=== PATIENT | female | born 1955 | race Caucasian/White ===

== ENCOUNTER 2019-03-28 07:28 | Day surgery (SDC) | payer OTHER ==
[2019-03-20 13:31] VITALS: BMI 24.1
[2019-03-28] MEDS: TROPICAMIDE 1% OPHTH SOLN 15 ML BOTTLE ONE ×3 (09:00→09:10)
[2019-03-28] MEDS: CYCLOPENTOLATE 2% OPHTH SOLN 2 ML BOTTLE ONE ×3 (09:00→09:10)
[2019-03-28] MEDS: CIPROFLOXACIN 0.3% EYE DROPS 5 ML BOTTLE ONE ×3 (09:00→09:10)
[2019-03-28] MEDS: PHENYLEPHRINE 2.5% OPHTH SOLN 15 ML BOTTLE ONE ×3 (09:00→09:10)
[2019-03-28] MEDS ORDERED: CARBACHOL 0.01% INTRA-OCULAR 1.5 ML VIAL ONE (10:08)
[2019-03-28] MEDS ORDERED: BSS (NA/CA/MG/K) BALANCED SALT SOLUTION OPHTH SOLN 15 ML BOTTLE ONE (10:08)
[2019-03-28] MEDS ORDERED: NEO/POLYMYX B SULF/DEXAMETH OPHTHALMIC 5ML BOTTLE ONE (10:08)
[2019-03-28] MEDS ORDERED: MIDAZOLAM HCL 2 MG/2 ML SINGLE DOSE VIAL ONE (10:15)
[2019-03-28 10:53] VITALS: TEMP 98.6
[2019-03-28 11:39] VITALS: BP 123/85; PULSE 87
--- NOTE | 2019-03-28 12:57 | OP ---
DATE OF Surgery: 03/28/2019 OPERATIVE PROCEDURE: Lens Phacoemulsification with Posterior Chamber Intraocular Lens Placement, Right Eye PREOPERATIVE DIAGNOSIS: Visually Significant Cataract of Right Eye POSTOPERATIVE DIAGNOSIS: Visually Significant Cataract of Right Eye SURGEON: Dominik Loza M.D. ANESTHESIA: MAC PROCEDURE: The patient was brought to the operating room and placed under monitored anesthesia care by Anesthesia. A drop of Tetracaine was then placed over the right eye. The patient was then prepped and draped in the usual sterile manner. A speculum was then placed over the right eye. The eye was then well irrigated with copious amounts of BSS (balanced salt solution). The operating microscope was then moved into position. A paracentesis was performed using a 15 degree blade. At this point 0.5 mL of 1% preservative free-lidocaine was injected into the anterior chamber. Amvisc plus was then injected into the anterior chamber. A clear corneal incision was then formed using a 2.2 mm keratome. A capsulorrhexis was then performed in a continuous circular fashion beginning with a cystotome completed with an Utratas forceps. Hydrodissection was then performed using BSS on a cannula. The phaco probe was then introduced through the corneal wound and the cataract was removed using the phaco chop technique. Approximately 3 seconds of absolute phaco time was used. The remaining cortex was then removed using irrigation and aspiration with an I/A probe. The capsule was then filled with regular Amvisc and the capsule was noted to be intact. A previously selected foldable posterior chamber intraocular lens was then injected into the capsule through the corneal wound using a lens injector. It was then dialed into position using a [place]inskey hook. The Amvisc was then removed using irrigation and aspiration. Miostat was then injected through the paracentesis to constrict the pupil. The paracentesis and corneal wound were then hydrated and noted to be water tight. A drop of Maxitrol was then placed over the eye. The speculum was removed and clear shield was taped over the eye. The patient tolerated the procedure well and there were no surgical complications. The patient was asked to follow up in my office the next day. DOMINIK LOZA M.D. [id number]
== END 2019-03-28 11:40 | disposition home or self-care (01) ==
LOC: FASU 07:28
PROVIDERS: ATTEND Ophthalmology
PROC: 08RJ3JZ Replacement of Right Lens with Synthetic Substitute, Percutaneous Approach (ICD-10-PCS; principal; 2019-03-28 10:27)
DX: H26.8 Other specified cataract (principal)

== ENCOUNTER 2019-04-18 08:13 | Day surgery (SDC) | payer OTHER ==
[2019-04-16 13:08] VITALS: BMI 23.8
[2019-04-18] MEDS: CYCLOPENTOLATE 2% OPHTH SOLN 2 ML BOTTLE ONE ×3 (09:15→09:25)
[2019-04-18] MEDS: TROPICAMIDE 1% OPHTH SOLN 15 ML BOTTLE ONE ×3 (09:15→09:25)
[2019-04-18] MEDS: CIPROFLOXACIN 0.3% EYE DROPS 5 ML BOTTLE ONE ×3 (09:15→09:25)
[2019-04-18] MEDS: PHENYLEPHRINE 2.5% OPHTH SOLN 15 ML BOTTLE ONE ×3 (09:15→09:25)
[2019-04-18] MEDS ORDERED: CARBACHOL 0.01% INTRA-OCULAR 1.5 ML VIAL ONE (10:21)
[2019-04-18] MEDS ORDERED: BSS (NA/CA/MG/K) BALANCED SALT SOLUTION OPHTH SOLN 15 ML BOTTLE ONE (10:21)
[2019-04-18] MEDS ORDERED: MIDAZOLAM HCL 2 MG/2 ML SINGLE DOSE VIAL ONE (10:29)
[2019-04-18 11:02] VITALS: TEMP 98.5
[2019-04-18 11:25] VITALS: BP 121/77; PULSE 78
--- NOTE | 2019-04-19 07:30 | OP ---
DATE OF OPERATION: 04/18/2019 OPERATIVE PROCEDURE: Lens phacoemulsification with posterior chamber intraocular lens placement left eye. PREOPERATIVE DIAGNOSIS: Visually significant cataract of left eye. POSTOPERATIVE DIAGNOSIS: Visually significant cataract of left eye. SURGEON: Dominik Loza M.D. ANESTHESIA: MAC PROCEDURE: The patient was brought to the operating room and placed under monitored anesthesia care by Anesthesia. A drop of tetracaine was then placed over the left eye. The patient was then prepped and draped in the usual sterile manner. A speculum was then placed over the left eye. The eye was then well irrigated with copious amounts of BSS (balanced salt solution). The operating microscope was then moved into position. A paracentesis was performed using a 15-degree blade. At this point 0.5 mL of 1% preservative-free lidocaine was injected into the anterior chamber. Amvisc Plus was then injected into the anterior chamber. A clear corneal incision was then formed using a 2.2-mm keratome. A capsulorrhexis was then performed in a continuous circular fashion beginning with a cystotome and completed with Utrata forceps. Hydrodissection was then performed using BSS on a cannula. The phaco probe was then introduced through the corneal wound, and the cataract was removed using the phaco-chop technique. Approximately 3 seconds of absolute phaco time was used. The remaining cortex was then removed using irrigation and aspiration with an I/A probe. The capsule was then filled with regular Amvisc, and the capsule was noted to be intact. A previously selected foldable posterior chamber intraocular lens was then injected into the capsule through the corneal wound using a lens injector. It was then dialed into position using a Sinskey hook. The Amvisc was then removed using irrigation and aspiration. Miostat was then injected through the paracentesis to constrict the pupil. The paracentesis and corneal wound were then hydrated and noted to be watertight. A drop of Maxitrol was then placed over the eye. The speculum was removed and clear shield was taped over the eye. The patient tolerated the procedure well, and there were no surgical complications. The patient was asked to follow up in my office the next day. DOMINIK LOZA M.D. [id number]
== END 2019-04-18 11:30 | disposition home or self-care (01) ==
LOC: FASU 08:13
PROVIDERS: ATTEND Ophthalmology
PROC: 08RK3JZ Replacement of Left Lens with Synthetic Substitute, Percutaneous Approach (ICD-10-PCS; principal; 2019-04-18 10:37)
DX: H26.8 Other specified cataract (principal)

== ENCOUNTER 2019-05-18 20:52 | Emergency (ER) | payer OTHER ==
[2019-05-18 20:58] VITALS: BMI 24.5
--- NOTE | 2019-05-18 21:46 | PDOC ---
History of Present Illness - General Chief Complaint: Lightheaded Stated Complaint: DIZZINESS Time Seen by Provider: 05/18/19 21:14 - History of Present Illness Initial Comments: Ms. Hanna is a 64 y/o female with PMH significant for HTN, presenting today with vertigo, decreased appetite, and weakness that started yesterday and heart palpitations that started today. Reports that she has never had these symptoms before. Denies headache/vision changes. Denies fever/chills. Denies chest pain or shortness of breath. Denies abdominal pain. Denies dysuria/hematuria/diarrhea. Past History - Past Medical History Allergies/Adverse Reactions: Allergies Allergy/AdvReac Type Severity Reaction Status Date / Time No Known Allergies Allergy Verified 05/18/19 20:58 Home Medications: Ambulatory Orders Amlodipine Besylate [Norvasc -] 5 mg PO DAILY 03/20/19 Levothyroxine [Synthroid -] 88 mcg PO DAILY 03/20/19 Losartan Potassium 100 mg PO DAILY 03/20/19 Anemia: No Asthma: No Cancer: Yes (Thyroid) Cardiac Disorders: No CVA: No COPD: No CHF: No Dementia: No Diabetes: No GI Disorders: No Disorders: No HTN: Yes Hypercholesterolemia: No Liver Disease: No Seizures: No Thyroid Disease: Yes ([place]) - Surgical History Abdominal Surgery: No Appendectomy: No Cardiac Surgery: No Cholecystectomy: No Lung Surgery: No Neurologic Surgery: No Orthopedic Surgery: No - Psycho Social/Smoking Cessation Hx Smoking History: Never smoked Have you smoked in the past 12 months: No Hx Alcohol Use: No Drug/Substance Use Hx: No Substance Use Type: None Cardiac Specific PMH - Complaint Specific PMHX Pacemaker: No Review of Systems - Review of Systems Comments:: GENERAL/CONSTITUTIONAL: No fever or chills. Reports weakness. Reports decreased appetite. HEAD, EYES, EARS, NOSE AND THROAT: No change in vision. No change in hearing. No sore throat._ CARDIOVASCULAR: No chest pain or shortness of breath. Reports heart palpitations. RESPIRATORY: Denies cough, hemoptysis_ GASTROINTESTINAL: No nausea, vomiting, diarrhea or constipation._ GENITOURINARY: No dysuria, frequency, or change in urination._ MUSCULOSKELETAL: No joint or muscle swelling or pain. No neck or back pain._ SKIN: No rash_ NEUROLOGIC: Reports vertigo. No headache, loss of consciousness, or change in strength/sensation._ ENDOCRINE: No increased thirst. No abnormal weight change_ HEMATOLOGIC/LYMPHATIC: No anemia, easy bleeding, or history of blood clots._ ALLERGIC/IMMUNOLOGIC: No hives or skin allergy._ *Physical Exam - Vital Signs Last Vital Signs Temp Pulse Resp BP Pulse Ox 98 F 101 H 20 148/102 H 97 05/18/19 22:41 05/19/19 02:16 05/19/19 02:16 05/19/19 02:16 05/19/19 02:16 - Physical Exam GENERAL: Awake, alert, and oriented to person/place/time, in no acute distress_ HEAD: No signs of trauma, normocephalic, atraumatic _ EYES: PERRLA, EOMI, sclera anicteric, conjunctiva clear_ ENT: Hearing grossly normal, nares patent, oropharynx clear without exudates. No uvular deviation. Moist mucosa. TMs clear and intact bilaterally. NECK: Normal ROM, supple, no lymphadenopathy, JVD, or masses_ LUNGS: No distress, speaks in full sentences, clear to auscultation bilaterally _ HEART: Tachycardia, normal S1 and S2, no murmurs appreciated, peripheral pulses normal and equal bilaterally._ ABDOMEN: Soft, nontender, normoactive bowel sounds. No guarding, no rebound. No masses_ EXTREMITIES: Normal inspection, Normal range of motion, no edema. No clubbing or cyanosis_ NEUROLOGICAL: Cranial nerves II through XII grossly intact. Normal speech, normal gait, no focal sensorimotor deficits. No nystagmus on lateral gaze bilaterally. Cerebellar testing intact. SKIN: Warm, Dry, normal turgor, no rashes or lesions noted_ ED Treatment Course - LABORATORY CBC & Chemistry Diagram: 05/18/19 22:00 05/18/19 22:00 - ADDITIONAL ORDERS Additional order review: Laboratory Results 05/18/19 05/18/19 05/18/19 22:00 22:00 22:00 PT with INR 11.30 INR 0.96 PTT (Actin FS) 36.3 Sodium Potassium Chloride Carbon Dioxide Anion Gap BUN Creatinine Est GFR (CKD-EPI)AfAm Est GFR (CKD-EPI)NonAf Random Glucose Calcium Total Bilirubin AST ALT Alkaline Phosphatase Creatine Kinase 157 Creatine Kinase Index 0.9 CK-MB (CK-2) 1.5 Troponin I < 0.02 Total Protein Albumin TSH 1.14 Urine Color Yellow Urine Appearance Clear Urine pH 5.0 Ur Specific [place] 1.004 L Urine Protein Negative Urine Glucose (UA) Negative Urine Ketones Negative Urine Blood Trace Urine Nitrite Negative Urine Bilirubin Negative Urine Urobilinogen 0.2 Ur Leukocyte Esterase Negative Urine WBC (Auto) 1 Urine RBC (Auto) 0 Urine Casts (Auto) 0 U Epithel Cells (Auto) 0.7 Urine Bacteria (Auto) 15.0 05/18/19 05/18/19 22:00 22:00 PT with INR INR PTT (Actin FS) Sodium 140 Potassium 4.6 Chloride 106 Carbon Dioxide 27 Anion Gap 7 L BUN 9.2 Creatinine 0.8 Est GFR (CKD-EPI)AfAm 90.30 Est GFR (CKD-EPI)NonAf 77.91 Random Glucose 149 H Calcium 9.2 Total Bilirubin 0.3 AST 34 ALT 30 Alkaline Phosphatase 139 H Creatine Kinase Cancelled Creatine Kinase Index CK-MB (CK-2) Troponin I Cancelled Total Protein 8.4 H Albumin 4.3 TSH Urine Color Urine Appearance Urine pH Ur Specific [place] Urine Protein Urine Glucose (UA) Urine Ketones Urine Blood Urine Nitrite Urine Bilirubin Urine Urobilinogen Ur Leukocyte Esterase Urine WBC (Auto) Urine RBC (Auto) Urine Casts (Auto) U Epithel Cells (Auto) Urine Bacteria (Auto) 05/18/19 22:00 RBC 6.09 H MCV 72.7 L MCHC 31.5 L RDW 15.4 MPV 8.4 Neutrophils % 62.0 Lymphocytes % 30.5 Monocytes % 6.3 Eosinophils % 0.6 Basophils % 0.6 - RADIOLOGY Radiology Studies Ordered: Category Date Time Status HEAD CT WITHOUT CONTRAST [CT] Stat CT Scan 05/18/19 22:40 Taken CHEST X-RAY PORTABLE* [RAD] Stat Radiology 05/18/19 21:40 Taken Medical Decision Making - Medical Decision Making 64F hx of HTN here for vertigo that started yesterday and palpitations that started this afternoon. -ekg, cxr, trop -cbc, cmp, coags, tsh -ct head -ua, ucx 05/18/19 21:45 EKG shows HR 139 bpm, no ST elevation/depression, QTc 559, no axis deviation. 05/18/19 22:06 EKG shows sinus tachycardia, 118 bpm, no ST elevation/depression, QTc 440, no axis deviation. 05/18/19 22:07 EKG shows sinus tachycardia, 114 bpm, no ST elevation/depression, QTc 452, no axis deviation. 05/18/19 22:30 Labs reviewed. Laboratory Tests 05/18/19 05/18/19 05/18/19 22:00 22:00 22:00 WBC 9.3 RBC 6.09 H Hgb 13.9 Hct 44.3 MCV 72.7 L MCH 22.9 L MCHC 31.5 L RDW 15.4 Plt Count 292 MPV 8.4 Absolute Neuts (auto) 5.8 Neutrophils % 62.0 Lymphocytes % 30.5 Monocytes % 6.3 Eosinophils % 0.6 Basophils % 0.6 Nucleated RBC % 0 PT with INR INR PTT (Actin FS) Sodium 140 Potassium 4.6 Chloride 106 Carbon Dioxide 27 Anion Gap 7 L BUN 9.2 Creatinine 0.8 Est GFR (CKD-EPI)AfAm 90.30 Est GFR (CKD-EPI)NonAf 77.91 Random Glucose 149 H Calcium 9.2 Total Bilirubin 0.3 AST 34 ALT 30 Alkaline Phosphatase 139 H Creatine Kinase Cancelled Creatine Kinase Index CK-MB (CK-2) Troponin I Cancelled Total Protein 8.4 H Albumin 4.3 TSH Urine Color Urine Appearance Urine pH Ur Specific [place] Urine Protein Urine Glucose (UA) Urine Ketones Urine Blood Urine Nitrite Urine Bilirubin Urine Urobilinogen Ur Leukocyte Esterase Urine WBC (Auto) Urine RBC (Auto) Urine Casts (Auto) U Epithel Cells (Auto) Urine Bacteria (Auto) 05/18/19 05/18/19 05/18/19 22:00 22:00 22:00 WBC RBC Hgb Hct MCV MCH MCHC RDW Plt Count MPV Absolute Neuts (auto) Neutrophils % Lymphocytes % Monocytes % Eosinophils % Basophils % Nucleated RBC % PT with INR 11.30 INR 0.96 PTT (Actin FS) 36.3 Sodium Potassium Chloride Carbon Dioxide Anion Gap BUN Creatinine Est GFR (CKD-EPI)AfAm Est GFR (CKD-EPI)NonAf Random Glucose Calcium Total Bilirubin AST ALT Alkaline Phosphatase Creatine Kinase 157 Creatine Kinase Index 0.9 CK-MB (CK-2) 1.5 Troponin I < 0.02 Total Protein Albumin TSH 1.14 Urine Color Yellow Urine Appearance Clear Urine pH 5.0 Ur Specific [place] 1.004 L Urine Protein Negative Urine Glucose (UA) Negative Urine Ketones Negative Urine Blood Trace Urine Nitrite Negative Urine Bilirubin Negative Urine Urobilinogen 0.2 Ur Leukocyte Esterase Negative Urine WBC (Auto) 1 Urine RBC (Auto) 0 Urine Casts (Auto) 0 U Epithel Cells (Auto) 0.7 Urine Bacteria (Auto) 15.0 05/19/19 01:33 CT head shows no acute intra-cranial hemorrhage, mass effect, or mid line shift. Mild nonspecific periventricular predominant low density throughout the deep white matter is most likely due to mild small vessel ischemic white matter disease. Calcified arteriosclerosis of the cavernous carotids noted. 05/19/19 02:00 Patient reassessed. Reports that she is feeling much better and sometimes feels anxious around others. D/w the importance of f/u with PCP and web administrator. Patient verbalized understanding and agreement with the plan. All questions answered. Return precautions given. Plan to d/c home with PCP and cards f/u. Discharge - Discharge Information Problems reviewed: Yes Clinical Impression/Diagnosis: Dizziness Disposition: HOME - Follow up/Referral Referrals: Graciela Garcia MD [Staff Physician] - Devyn Calvillo [Primary Care Provider] - - Patient Discharge Instructions Patient Printed Discharge Instructions: DI for Anxiety -- Adult, DI for Tachycardia Additional Instructions: Please make a follow up appointment with your primary care doctor within 1 week. Please make an appointment with a web administrator to further work up your heart palpitations. If you experience any new, worsening, or concerning symptoms, including severe chest pain, shortness of breath, dizziness, loss of consciousness, or any other concerns, please return to the emergency department. Pasha kandice tamara de seguimiento con li mdico de atencin primaria dentro de 1 semana. Pasha kandice tamara con un cardilogo para mejorar las palpitaciones de li corazn. Si experimenta cualquier sntoma nuevo, que empeora o preocupa, incluido dolor torcico intenso, falta de aliento, mareos, prdida de conciencia o cualquier otra inquietud, regrese al departamento de emergencias. - Post Discharge Activity
[2019-05-18 22:16] LABS: BASO % 0.6 % (0-2.0); EOS % 0.6 % (0-4.5); HEMATOCRIT 44.3 % (32.4-45.2); HEMOGLOBIN 13.9 GM/dL (10.7-15.3); LYMPH % 30.5 % (8-40); MCH 22.9 pg (25.7-33.7); MCHC 31.5 g/dl (32.0-36.0); MEAN CELL VOLUME 72.7 fl (80-96); MEAN PLT VOLUME 8.4 fl (7.5-11.1); MONO % 6.3 % (3.8-10.2); PLATELET COUNT 292 K/MM3 (134-434); RBC 6.09 M/mm3 (3.60-5.2); RDW 15.4 % (11.6-15.6); WHITE BLOOD COUNT 9.3 K/mm3 (4.0-10.0)
[2019-05-18 22:26] LABS: EPI CELLS 0.7 /HPF (0-5/HPF); HYALINE CASTS 0 /lpf (0-8); URINE APPEARANCE CLEAR; URINE BILIRUBIN NEGATIVE (NEGATIVE); URINE COLOR YELLOW; URINE GLUCOSE (UA) NEGATIVE (NEGATIVE); URINE KETONE NEGATIVE (NEGATIVE); URINE LEUK ESTERASE NEGATIVE (NEGATIVE); URINE NITRITE NEGATIVE (NEGATIVE); URINE PROTEIN NEGATIVE (NEGATIVE); URINE RBC 0 /hpf (0-4); URINE UROBILINOGEN 0.2 mg/dL (0.2-1.0); URINE WBC 1 /hpf (0-5)
[2019-05-18 22:39] LABS: INR 0.96 (0.83-1.09); PROTHROMBIN TIME (PATIENT) 11.3 SEC (9.7-13.0)
[2019-05-18 22:41] LABS: ACTIVATED PTT 36.3 SECONDS (25.2-36.5)
[2019-05-18 22:49] LABS: ALBUMIN 4.3 g/dl (3.4-5.0); BILIRUBIN,TOTAL 0.3 mg/dL (0.2-1); BLOOD UREA NITROGEN 9.2 mg/dL (7-18); CALCIUM 9.2 mg/dL (8.5-10.1); CREATININE 0.8 mg/dL (0.55-1.3); TOT PROT 8.4 g/dl (6.4-8.2)
[2019-05-18 22:50] LABS: POTASSIUM 4.6 mmol/L (3.5-5.1)
[2019-05-19 00:37] VITALS: PULSE 101; TEMP 98
[2019-05-19 02:17] VITALS: BP 148/102
--- NOTE | 2019-05-19 23:14 | EKG ---
Test Reason : Blood Pressure : / mmHG Vent. Rate : 114 BPM Atrial Rate : 114 BPM P-R Int : 186 ms QRS Dur : 080 ms QT Int : 328 ms P-R-T Axes : 053 025 036 degrees QTc Int : 452 ms SINUS TACHYCARDIA OTHERWISE NORMAL ECG WHEN COMPARED WITH ECG OF 18-MAY-2019 21:37, NO SIGNIFICANT CHANGE WAS FOUND Confirmed by NEW GRIGGS MD ([id number]) on 05/19/2019 11:14:36 PM Referred By: Confirmed By:NEW GRIGGS MD
--- NOTE | 2019-05-19 23:18 | EKG ---
Test Reason : Blood Pressure : / mmHG Vent. Rate : 139 BPM Atrial Rate : 086 BPM P-R Int : 000 ms QRS Dur : 084 ms QT Int : 368 ms P-R-T Axes : 000 016 046 degrees QTc Int : 559 ms SUPRAVENTRICULAR TACHYCARDIA POSSIBLE INFERIOR INFARCT , AGE UNDETERMINED ABNORMAL ECG WHEN COMPARED WITH ECG OF 29-AUG-2007 12:22, VENT. RATE HAS INCREASED BY 85 BPM PROBABLE RHYTHM CHANGE Confirmed by NEW GRIGGS MD [id number]) on 05/19/2019 11:17:24 PM Referred By: Confirmed By:NEW GRIGGS MD
== END 2019-05-19 02:17 | disposition home or self-care (01) ==
LOC: JER 20:52
DX: R42 Dizziness and giddiness (principal); I10 Essential (primary) hypertension; R00.0 Tachycardia, unspecified
CPT/HCPCS: 36415; 70450-TC; 71045-TC-FY; 80053; 81003; 82550; 82553; 84443; 84484; 85025; 85610; 85730; 87086; 93005; 93010; 99284-25

== ENCOUNTER 2020-12-30 12:39 | Inpatient (IN) | payer MEDICARE, OTHER ==
[2020-12-30 16:02] LABS: BASO % 0.6 % (0-2.0); EOS % 0.4 % (0-4.5); HEMATOCRIT 43.4 % (32.4-45.2); HEMOGLOBIN 13.8 GM/dL (10.7-15.3); LYMPH % 28.1 % (8-40); MCH 22.9 pg (25.7-33.7); MCHC 31.8 g/dl (32.0-36.0); MEAN CELL VOLUME 72.1 fl (80-96); MEAN PLT VOLUME 8.3 fl (7.5-11.1); NEUT % 65.9 % (42.8-82.8); PLATELET COUNT 272 10^3/uL (134-434); RBC 6.01 M/mm3 (3.60-5.2); RDW 15.2 % (11.6-15.6); WHITE BLOOD COUNT 10.6 K/mm3 (4.0-10.0)
[2020-12-30 16:11] LABS: INR 1.01 (0.83-1.09); PROTHROMBIN TIME (PATIENT) 12.4 SEC (9.7-13.0)
[2020-12-30 16:16] LABS: CHLORIDE 108 mmol/L (98-107); SODIUM 142 mmol/L (136-145)
[2020-12-30 16:18] LABS: ALBUMIN 4.1 g/dl (3.4-5.0); ANION GAP 8 MMOL/L (8-16); BLOOD UREA NITROGEN 6.2 mg/dL (7-18); CO2 26 mmol/L (21-32); GLUCOSE,RANDOM 94 mg/dL (74-106)
[2020-12-30 16:22] LABS: CREATININE 0.7 mg/dL (0.55-1.3); SGOT/AST 23 U/L (15-37); SGPT/ALT 26 U/L (13-61)
[2020-12-30 16:23] LABS: BILIRUBIN,TOTAL 0.3 mg/dL (0.2-1)
[2020-12-30 16:24] LABS: ALK PHOS 110 U/L (45-117)
[2020-12-30] MEDS ORDERED: POTASSIUM CHLORIDE TABS 20 MEQ TABLET.ER (FP) PO ONE ×2 (19:41→20:49)
[2020-12-30] MEDS ORDERED: PANTOPRAZOLE 20 MG TABLET PO ONE (20:52)
[2020-12-30] MEDS: PANTOPRAZOLE 40 MG TABLET PO SCH (21:10)
[2020-12-31 03:48] VITALS: BMI 21.9
[2020-12-31] MEDS: LEVOTHYROXINE NA 88 MCG TABLET (FP) PO SCH (06:02)
[2020-12-31 09:12] LABS: BASO % 0.4 % (0-2.0); HEMATOCRIT 42.1 % (32.4-45.2); HEMOGLOBIN 13.4 GM/dL (10.7-15.3); LYMPH % 29.8 % (8-40); MCHC 31.7 g/dl (32.0-36.0); MEAN CELL VOLUME 72.6 fl (80-96); MEAN PLT VOLUME 8.5 fl (7.5-11.1); MONO % 7.1 % (3.8-10.2); NEUT % 61.7 % (42.8-82.8); PLATELET COUNT 299 10^3/uL (134-434); RDW 15.6 % (11.6-15.6); WHITE BLOOD COUNT 8.5 K/mm3 (4.0-10.0)
[2020-12-31 09:21] LABS: BLOOD UREA NITROGEN 8.8 mg/dL (7-18)
[2020-12-31 09:23] LABS: CREATININE 0.8 mg/dL (0.55-1.3)
[2020-12-31] MEDS ORDERED: PNEUMOC 13-VAL CONJ-DIP CRM/PF 0.5 ML DISP.SYRIN IM ONE (09:30)
[2020-12-31] MEDS: amLODIPine BESYLATE 5 MG TABLET (FP) PO SCH (11:23)
[2020-12-31] MEDS: LOSARTAN POTASSIUM 50 MG TABLET PO SCH (11:23)
[2020-12-31] MEDS: PANTOPRAZOLE 40 MG TABLET PO SCH (11:23)
[2021-01-01] MEDS: LEVOTHYROXINE NA 88 MCG TABLET (FP) PO SCH (05:59)
[2021-01-01] MEDS: PANTOPRAZOLE 40 MG TABLET PO SCH (09:03)
[2021-01-01] MEDS: amLODIPine BESYLATE 5 MG TABLET (FP) PO SCH (09:03)
[2021-01-01] MEDS: LOSARTAN POTASSIUM 50 MG TABLET PO SCH (09:03)
[2021-01-01] MEDS ORDERED: THROMBIN (BOVINE) 20,000 UNIT VIAL TP ONE (10:14)
[2021-01-01] MEDS ORDERED: GENTAMICIN SO4 80 MG/2 ML VIAL ONE (10:14)
[2021-01-01] MEDS ORDERED: BACITRACIN 15 GM TUBE TOPICAL OINTMENT ONE (10:15)
[2021-01-01] MEDS ORDERED: PROPOFOL 20 ML ONE ×2 (10:25→12:35)
[2021-01-01] MEDS ORDERED: MIDAZOLAM HCL 2 MG/2 ML SINGLE DOSE VIAL ONE (10:25)
[2021-01-01] MEDS ORDERED: ceFAZolin SODIUM 1 GM VIAL ONE (10:26)
[2021-01-01] MEDS ORDERED: ONDANSETRON 4 MG/2 ML VIAL ONE (10:26)
[2021-01-01] MEDS ORDERED: LIDOCAINE HCL/PF 2% SDV 5ML VIAL ONE (10:26)
[2021-01-01] MEDS ORDERED: DEXAMETHASONE SOD PHOSPHATE 4 MG/1 ML VIAL ONE (10:26)
[2021-01-01] MEDS ORDERED: ROCURONIUM BROMIDE 50 MG/5 ML SYRINGE ONE (10:27)
[2021-01-01] MEDS ORDERED: fentaNYL CITRATE 250 MCG/5 ML VIAL ONE (10:47)
[2021-01-01] MEDS ORDERED: VANCOMYCIN 1,000 MG VIAL (RESTRICTED TO ID ONLY) ONE (11:05)
[2021-01-01] MEDS ORDERED: ceFAZolin SODIUM 1 GM VIAL IVPB ONE (11:15)
[2021-01-01] MEDS ORDERED: VANCOMYCIN 1,000 MG VIAL (RESTRICTED TO ID ONLY) IVPB ONE (11:15)
[2021-01-01] MEDS ORDERED: LIDOCAINE HCL 1%, 10 MG/ML (20ML VIAL) NR ONE (11:40)
[2021-01-01] MEDS ORDERED: FUROSEMIDE 40 MG/4 ML INJECTABLE VIAL ONE (11:44)
[2021-01-01] MEDS ORDERED: PHENYLEPHRINE HCL 10 MG/1 ML SINGLE DOSE VIAL ONE (11:58)
[2021-01-01] MEDS ORDERED: BACITRACIN 50,000 UNITS VIAL NR ONE (11:59)
[2021-01-01] MEDS ORDERED: HYDROmorphone HCl 2 MG/ML VIAL ONE (12:26)
[2021-01-01] MEDS ORDERED: GLYCOPYRROLATE 0.2 MG/1 ML VIAL ONE (14:59)
[2021-01-01] MEDS ORDERED: NEOSTIGMINE METHYLSULFATE 0.5 MG/1 ML - 10 ML MDV ONE (14:59)
[2021-01-01] MEDS ORDERED: oxyCODONE HCL 5 MG TABLET PO PRN ×2 (15:24)
[2021-01-01] MEDS ORDERED: ONDANSETRON 4 MG/2 ML VIAL IVPUSH PRN (15:24)
[2021-01-01] MEDS ORDERED: diphenhydrAMINE HCL 25 MG CAPSULE (FP) PO PRN (15:24)
[2021-01-01] MEDS: LACTATED RINGERS SOLUTION 1,000 ML IV SCH ×2 (17:00→17:05)
[2021-01-01] MEDS: morphine SULFATE 4 MG/ML VIAL IVPUSH PRN (17:26)
[2021-01-01] MEDS ORDERED: ACETAMINOPHEN INJECTION 100 ML IVPB ONE (19:31)
[2021-01-01] MEDS ORDERED: DEXMEDETOMIDINE IN 0.9 % NACL 400 MCG/100 ML VIAL IVPB SCH (20:00)
[2021-01-01] MEDS ORDERED: CHLORHEXIDINE GLUCONATE 4% CLEANSER FOR DECOLONIZATION TP SCH (22:00)
[2021-01-01] MEDS ORDERED: MUPIROCIN 2% TOPICAL OINTMENT FOR DECOLONIZATION NS SCH (22:00)
[2021-01-01] MEDS ORDERED: LORazepam 2 MG/ML SDV VIAL IVPUSH ONE (22:51)
[2021-01-01] MEDS: MUPIROCIN 2% TOPICAL OINTMENT FOR DECOLONIZATION NS SCH (22:53)
[2021-01-01] MEDS: DOCUSATE SODIUM 100 MG CAPSULE (FP) PO SCH (22:54)
[2021-01-01] MEDS: HEPARIN NA (PORCINE) 5,000 UNITS/ML 1ML VIAL SQ SCH (22:54)
[2021-01-01] MEDS: CHLORHEXIDINE GLUCONATE 4% CLEANSER FOR DECOLONIZATION TP SCH (22:54)
[2021-01-02] MEDS: HEPARIN NA (PORCINE) 5,000 UNITS/ML 1ML VIAL SQ SCH ×3 (06:45→22:22)
[2021-01-02] MEDS: DOCUSATE SODIUM 100 MG CAPSULE (FP) PO SCH ×3 (06:45→22:22)
[2021-01-02 07:27] LABS: HEMOGLOBIN 12.6 GM/dL (10.7-15.3); MCHC 31.5 g/dl (32.0-36.0); MEAN CELL VOLUME 73.1 fl (80-96); MEAN PLT VOLUME 8.9 fl (7.5-11.1); PLATELET COUNT 218 10^3/uL (134-434); RBC 5.48 M/mm3 (3.60-5.2); RDW 15.7 % (11.6-15.6); WHITE BLOOD COUNT 16.2 K/mm3 (4.0-10.0)
[2021-01-02 07:49] LABS: BLOOD UREA NITROGEN 7.3 mg/dL (7-18); MAGNESIUM 2.3 mg/dL (1.8-2.4)
[2021-01-02 07:52] LABS: CREATININE 0.6 mg/dL (0.55-1.3); PHOSPHOROUS 3.8 mg/dL (2.5-4.9)
[2021-01-02] MEDS: LEVOTHYROXINE NA 88 MCG TABLET (FP) PO SCH (10:36)
[2021-01-02] MEDS: PANTOPRAZOLE 40 MG TABLET PO SCH (10:36)
[2021-01-02] MEDS: FOLIC ACID 1 MG TABLET (FP) PO SCH (10:36)
[2021-01-02] MEDS: MUPIROCIN 2% TOPICAL OINTMENT FOR DECOLONIZATION NS SCH ×2 (10:36→22:21)
[2021-01-02] MEDS: LOSARTAN POTASSIUM 50 MG TABLET PO SCH (10:36)
[2021-01-02] MEDS: FERROUS SO4 325 MG TABLET (FP) PO SCH (12:23)
[2021-01-02] MEDS: amLODIPine BESYLATE 5 MG TABLET (FP) PO SCH (12:23)
[2021-01-02] MEDS: morphine SULFATE 4 MG/ML VIAL IVPUSH PRN ×2 (13:03→22:18)
[2021-01-02] MEDS: LACTATED RINGERS SOLUTION 1,000 ML IV SCH (16:59)
[2021-01-02] MEDS: CHLORHEXIDINE GLUCONATE 4% CLEANSER FOR DECOLONIZATION TP SCH (22:22)
[2021-01-03] MEDS: DOCUSATE SODIUM 100 MG CAPSULE (FP) PO SCH ×3 (06:32→21:20)
[2021-01-03] MEDS: HEPARIN NA (PORCINE) 5,000 UNITS/ML 1ML VIAL SQ SCH ×3 (06:33→21:21)
[2021-01-03] MEDS: LEVOTHYROXINE NA 88 MCG TABLET (FP) PO SCH (06:33)
[2021-01-03 07:25] LABS: BASO % 0.3 % (0-2.0); HEMATOCRIT 38.7 % (32.4-45.2); HEMOGLOBIN 12.4 GM/dL (10.7-15.3); LYMPH % 14.6 % (8-40); MCH 23.2 pg (25.7-33.7); MCHC 32.1 g/dl (32.0-36.0); MEAN CELL VOLUME 72.4 fl (80-96); MEAN PLT VOLUME 8.9 fl (7.5-11.1); MONO % 6.8 % (3.8-10.2); NEUT % 78.3 % (42.8-82.8); PLATELET COUNT 255 10^3/uL (134-434); RBC 5.35 M/mm3 (3.60-5.2); WHITE BLOOD COUNT 22.6 K/mm3 (4.0-10.0)
[2021-01-03 07:38] LABS: BLOOD UREA NITROGEN 5.4 mg/dL (7-18); CALCIUM 8.5 mg/dL (8.5-10.1)
[2021-01-03 07:42] LABS: CREATININE 0.6 mg/dL (0.55-1.3)
[2021-01-03] MEDS: ACETAMINOPHEN 325 MG TABLET (FP) PO PRN (08:17)
[2021-01-03] MEDS ORDERED: POTASSIUM CHLORIDE TABS 20 MEQ TABLET.ER (FP) PO ONE (08:27)
[2021-01-03] MEDS: FERROUS SO4 325 MG TABLET (FP) PO SCH (08:43)
[2021-01-03] MEDS: FOLIC ACID 1 MG TABLET (FP) PO SCH (09:36)
[2021-01-03] MEDS: PANTOPRAZOLE 40 MG TABLET PO SCH (09:36)
[2021-01-03] MEDS: amLODIPine BESYLATE 5 MG TABLET (FP) PO SCH (09:36)
[2021-01-03] MEDS: MUPIROCIN 2% TOPICAL OINTMENT FOR DECOLONIZATION NS SCH ×2 (09:36→21:21)
[2021-01-03] MEDS: LOSARTAN POTASSIUM 50 MG TABLET PO SCH (09:42)
[2021-01-03 10:54] LABS: ANISOCYTOSIS 0; HELMET CELLS 0; HOWELL-JOLLY BODIES 0; MACROCYTOSIS 0; OVALOCYTE 0; PLATELET ESTIMATE NORMAL; ROULEAU 0; SICKELED CELLS 0; TARGET CELLS 0; TEAR DROP CELLS 0; TOXIC GRANULATION 0
[2021-01-03] MEDS: morphine SULFATE 4 MG/ML VIAL IVPUSH PRN ×2 (16:46→20:23)
[2021-01-03] MEDS: AMINO ACIDS/PROTEIN HYDROLYS 30 ML LIQUID.PKT PO SCH (16:47)
[2021-01-03] MEDS: LACTATED RINGERS SOLUTION 1,000 ML IV SCH (18:14)
[2021-01-03 18:22] LABS: EPI CELLS 7 /uL (0-25.1); HYALINE CASTS 0 /uL (0-3.1); PH,URINE 7.5 (5.0-8.0); URINE APPEARANCE CLEAR; URINE BACTERIA 36 /uL (0-1359); URINE BILIRUBIN NEGATIVE (NEGATIVE); URINE COLOR YELLOW; URINE GLUCOSE (UA) NEGATIVE (NEGATIVE); URINE KETONE TRACE (NEGATIVE); URINE LEUK ESTERASE TRACE (NEGATIVE); URINE NITRITE NEGATIVE (NEGATIVE); URINE PROTEIN NEGATIVE (NEGATIVE); URINE RBC 32 /uL (0-23.9); URINE UROBILINOGEN 0.2 mg/dL (0.2-1.0); URINE WBC 9 /uL (0-25.8)
[2021-01-03] MEDS: CHLORHEXIDINE GLUCONATE 4% CLEANSER FOR DECOLONIZATION TP SCH (21:21)
[2021-01-04] MEDS: morphine SULFATE 4 MG/ML VIAL IVPUSH PRN ×2 (02:40→23:13)
[2021-01-04 06:08] LABS: BASO % 0.3 % (0-2.0); HEMATOCRIT 38.9 % (32.4-45.2); HEMOGLOBIN 12.2 GM/dL (10.7-15.3); LYMPH % 16.4 % (8-40); MCH 22.9 pg (25.7-33.7); MCHC 31.4 g/dl (32.0-36.0); MEAN PLT VOLUME 8.9 fl (7.5-11.1); MONO % 7.1 % (3.8-10.2); NEUT % 76.2 % (42.8-82.8); PLATELET COUNT 238 10^3/uL (134-434); RBC 5.33 M/mm3 (3.60-5.2); RDW 15.6 % (11.6-15.6); WHITE BLOOD COUNT 23.6 K/mm3 (4.0-10.0)
[2021-01-04 06:32] LABS: BLOOD UREA NITROGEN 7.2 mg/dL (7-18); MAGNESIUM 2.2 mg/dL (1.8-2.4)
[2021-01-04 06:35] LABS: CREATININE 0.7 mg/dL (0.55-1.3); PHOSPHOROUS 1.9 mg/dL (2.5-4.9)
[2021-01-04] MEDS ORDERED: NAPH,MB-DB/K PH,MBDB POWDER PACKET PO ONE (06:38)
[2021-01-04] MEDS: LEVOTHYROXINE NA 88 MCG TABLET (FP) PO SCH (06:57)
[2021-01-04] MEDS: DOCUSATE SODIUM 100 MG CAPSULE (FP) PO SCH ×3 (06:57→21:39)
[2021-01-04] MEDS: HEPARIN NA (PORCINE) 5,000 UNITS/ML 1ML VIAL SQ SCH ×3 (06:57→21:38)
[2021-01-04] MEDS: AMINO ACIDS/PROTEIN HYDROLYS 30 ML LIQUID.PKT PO SCH ×2 (07:29→17:08)
[2021-01-04] MEDS: ACETAMINOPHEN 325 MG TABLET (FP) PO PRN (07:29)
[2021-01-04] MEDS: FERROUS SO4 325 MG TABLET (FP) PO SCH (08:45)
[2021-01-04 09:17] LABS: ANISOCYTOSIS 1+; MACROCYTOSIS 0; PLATELET ESTIMATE NORMAL
[2021-01-04] MEDS ORDERED: PT OWN MED DRAWER 7, Y5N ONE (09:50)
[2021-01-04] MEDS: amLODIPine BESYLATE 5 MG TABLET (FP) PO SCH (09:52)
[2021-01-04] MEDS: MUPIROCIN 2% TOPICAL OINTMENT FOR DECOLONIZATION NS SCH (09:52)
[2021-01-04] MEDS: FOLIC ACID 1 MG TABLET (FP) PO SCH (09:52)
[2021-01-04] MEDS: LOSARTAN POTASSIUM 50 MG TABLET PO SCH (09:52)
[2021-01-04] MEDS: PANTOPRAZOLE 40 MG TABLET PO SCH (09:52)
[2021-01-04] MEDS ORDERED: MULTIVITAMINS THER W-MINERALS COMBO TABLET (FP) PO SCH (10:00)
[2021-01-04] MEDS ORDERED: ONDANSETRON 4 MG/2 ML VIAL IVPUSH PRN (11:45)
[2021-01-04] MEDS ORDERED: oxyCODONE HCL 5 MG TABLET PO PRN ×2 (11:45)
[2021-01-04] MEDS: LACTATED RINGERS SOLUTION 1,000 ML IV SCH (15:04)
[2021-01-04] MEDS ORDERED: CHLORHEXIDINE GLUCONATE 4% CLEANSER FOR DECOLONIZATION TP SCH (22:00)
[2021-01-04] MEDS ORDERED: MUPIROCIN 2% TOPICAL OINTMENT FOR DECOLONIZATION NS SCH (22:00)
[2021-01-04] MEDS: diphenhydrAMINE HCL 25 MG CAPSULE (FP) PO PRN (23:50)
[2021-01-05] MEDS: morphine SULFATE 4 MG/ML VIAL IVPUSH PRN ×2 (04:10→22:19)
[2021-01-05] MEDS: HEPARIN NA (PORCINE) 5,000 UNITS/ML 1ML VIAL SQ SCH ×3 (06:18→21:14)
[2021-01-05] MEDS: LEVOTHYROXINE NA 88 MCG TABLET (FP) PO SCH (06:18)
[2021-01-05] MEDS: DOCUSATE SODIUM 100 MG CAPSULE (FP) PO SCH ×3 (06:18→21:14)
[2021-01-05 08:30] LABS: HEMOGLOBIN 10.6 GM/dL (10.7-15.3); MCH 23.3 pg (25.7-33.7); MCHC 32.3 g/dl (32.0-36.0); MEAN CELL VOLUME 72.3 fl (80-96); MEAN PLT VOLUME 8.7 fl (7.5-11.1); PLATELET COUNT 216 10^3/uL (134-434); RBC 4.56 M/mm3 (3.60-5.2); RDW 14.9 % (11.6-15.6); WHITE BLOOD COUNT 10.2 K/mm3 (4.0-10.0)
[2021-01-05] MEDS: AMINO ACIDS/PROTEIN HYDROLYS 30 ML LIQUID.PKT PO SCH ×2 (08:44→17:54)
[2021-01-05] MEDS: FERROUS SO4 325 MG TABLET (FP) PO SCH (08:44)
[2021-01-05 08:58] LABS: CALCIUM 8.1 mg/dL (8.5-10.1)
[2021-01-05 08:59] LABS: BLOOD UREA NITROGEN 9.2 mg/dL (7-18); MAGNESIUM 2.2 mg/dL (1.8-2.4)
[2021-01-05 09:02] LABS: CREATININE 0.5 mg/dL (0.55-1.3); PHOSPHOROUS 2.3 mg/dL (2.5-4.9)
[2021-01-05] MEDS ORDERED: PT OWN MED DRAWER 7, Y5N ONE (09:41)
[2021-01-05] MEDS: LOSARTAN POTASSIUM 50 MG TABLET PO SCH (09:44)
[2021-01-05] MEDS: amLODIPine BESYLATE 5 MG TABLET (FP) PO SCH (09:45)
[2021-01-05] MEDS ORDERED: POTASSIUM CHLORIDE TABS 20 MEQ TABLET.ER (FP) PO ONE (09:45)
[2021-01-05] MEDS: FOLIC ACID 1 MG TABLET (FP) PO SCH (09:45)
[2021-01-05] MEDS: MULTIVITAMINS THER W-MINERALS COMBO TABLET (FP) PO SCH (09:46)
[2021-01-05] MEDS: PANTOPRAZOLE 40 MG TABLET PO SCH (09:46)
[2021-01-05] MEDS: ACETAMINOPHEN 325 MG TABLET (FP) PO PRN (14:55)
[2021-01-05] MEDS: LACTATED RINGERS SOLUTION 1,000 ML IV SCH ×2 (14:58→21:13)
[2021-01-05] MEDS: diphenhydrAMINE HCL 25 MG CAPSULE (FP) PO PRN (21:14)
[2021-01-06] MEDS: morphine SULFATE 4 MG/ML VIAL IVPUSH PRN (02:56)
[2021-01-06] MEDS: DOCUSATE SODIUM 100 MG CAPSULE (FP) PO SCH ×2 (06:07→14:10)
[2021-01-06] MEDS: LEVOTHYROXINE NA 88 MCG TABLET (FP) PO SCH (06:07)
[2021-01-06] MEDS: ACETAMINOPHEN 325 MG TABLET (FP) PO PRN (06:08)
[2021-01-06] MEDS: HEPARIN NA (PORCINE) 5,000 UNITS/ML 1ML VIAL SQ SCH ×2 (06:08→14:10)
[2021-01-06] MEDS: AMINO ACIDS/PROTEIN HYDROLYS 30 ML LIQUID.PKT PO SCH ×2 (08:44→17:55)
[2021-01-06] MEDS: FERROUS SO4 325 MG TABLET (FP) PO SCH (08:44)
[2021-01-06 08:48] LABS: BASO % 0.3 % (0-2.0); EOS % 1.4 % (0-4.5); HEMATOCRIT 33.9 % (32.4-45.2); HEMOGLOBIN 10.9 GM/dL (10.7-15.3); LYMPH % 26.3 % (8-40); MCHC 32.1 g/dl (32.0-36.0); MEAN CELL VOLUME 71.6 fl (80-96); MEAN PLT VOLUME 8.3 fl (7.5-11.1); MONO % 9.9 % (3.8-10.2); NEUT % 62.1 % (42.8-82.8); PLATELET COUNT 250 10^3/uL (134-434); RBC 4.73 M/mm3 (3.60-5.2); RDW 14.9 % (11.6-15.6); WHITE BLOOD COUNT 9.3 K/mm3 (4.0-10.0)
[2021-01-06 09:10] LABS: CALCIUM 8.7 mg/dL (8.5-10.1)
[2021-01-06 09:11] LABS: BLOOD UREA NITROGEN 8.2 mg/dL (7-18)
[2021-01-06 09:14] LABS: CREATININE 0.5 mg/dL (0.55-1.3)
[2021-01-06] MEDS: LOSARTAN POTASSIUM 50 MG TABLET PO SCH (09:56)
[2021-01-06] MEDS: PANTOPRAZOLE 40 MG TABLET PO SCH (09:57)
[2021-01-06] MEDS: MULTIVITAMINS THER W-MINERALS COMBO TABLET (FP) PO SCH (09:57)
[2021-01-06] MEDS: amLODIPine BESYLATE 5 MG TABLET (FP) PO SCH (09:57)
[2021-01-06] MEDS: FOLIC ACID 1 MG TABLET (FP) PO SCH (09:57)
[2021-01-06] MEDS ORDERED: POTASSIUM CHLORIDE TABS 20 MEQ TABLET.ER (FP) PO ONE (10:30)
[2021-01-06] MEDS ORDERED: IRON SUCROSE INJECTION 200 MG in SODIUM CHLORIDE 90 ML IVPB ONE (10:32)
[2021-01-06 15:16] VITALS: BP 118/71; PULSE 74; TEMP 98.4
== END 2021-01-06 19:23 | disposition home health service (06) | DRG 25 ==
LOC: JER 12:39 → JERBED 17:43 → J8W 12-31 03:15 → J2C 01-01 14:25 → JICU 01-01 17:16 → J8W 01-04 11:30
PROVIDERS: ADMIT Internal Medicine; ATTEND Internal Medicine
PROC: 00B Central Nervous System and Cranial Nerves, Excision (ICD-10-PCS; principal; 2021-01-01 12:00)
DX: D32.9 Benign neoplasm of meninges, unspecified (principal); G93.6 Cerebral edema; R51.9 Headache, unspecified; F09 Unspecified mental disorder due to known physiological condition; R42 Dizziness and giddiness; I10 Essential (primary) hypertension; E03.9 Hypothyroidism, unspecified; D72.829 Elevated white blood cell count, unspecified; E87.6 Hypokalemia; D50.9 Iron deficiency anemia, unspecified; K59.00 Constipation, unspecified; R00.0 Tachycardia, unspecified
CPT/HCPCS: 36415; 70260-TC-FY; 70450-TC; 70551-TC; 71046-TC-FY; 80048; 80053; 81003; 82550; 82728; 82962; 83540; 83550; 83735; 84100; 84484; 85025; 85027; 85610; 86850; 86900; 86901; 87040; 87070; 87086; 87186; 87205; 88305-TC; 88307-TC; 88311-TC; 88331-TC; 90670; 93005; 93010; 93970-TC; 93971; 94760; 97116-GP; 97161-GP; 99285-25; C9803; J0131; J1644; J1756; U0003; U0005